=== PATIENT | male | born 1945 | race Caucasian/White ===

== ENCOUNTER 2020-02-10 18:14 | Observation (INO) | payer MEDICARE ==
--- NOTE | 2020-02-10 19:40 | PDOC.HHP ---
Hospitalist HPI - History of Present Illness History of Present Illness: ADMISSION DATE: 02/10/2020 TIME OF ASSESSMENT: 1845 PRIMARY CARE PHYSICIAN: Carine CHIEF COMPLAINT: Right-sided weakness HPI: Patient is a 74-year-old male past medical history significant for hypertension and CABG. Patient presented to the ER in [place] for right-sided weakness. He had gone to the store with his and before exiting the vehicle he noticed that his right hand was uncoordinated and numb. He also states that his right leg was weak and numb. He was able to flag down nearby friend who went and got his in the store. His symptoms began to resolve once EMS arrived. Patient was given aspirin 325 in the [place] ER prior to transfer. Patient denies chest pain, shortness of breath, change in mentation, contact with sick persons. He does indicate he has had any increased stressors lately including having all of their children have to move in with them again. He states he has had many nights of not sleeping and worrying about them. ED COURSE: Vital Signs: Blood pressure 197/97, pulse 58, respiratory rate 20, temp 97.9 oral, no pain, O2 saturation 96% on room air Patient was transferred to the [place] ER today after being seen in [place]. Prior to transfer he had lab work, EKG, Brain CT, and CT [place] angio with contrast completed. PAST MEDICAL HISTORY: Hyperlipidemia, hypertension PAST SURGICAL HISTORY: CABG x5 SOCIAL HISTORY: Patient lives at home with his and children. He is a daily tobacco chewer, denies smoking. Denies alcohol and drug use. FAMILY HISTORY: Unknown ALLERGIES: No known drug allergies CURRENT MEDICATIONS: Lisinopril 10 mg daily Atorvastatin 40 mg daily Amiodarone 200 mg daily Fish oil 1000 mg daily Iron tablet 2 times a day Hospitalist ROS - Review of Systems Neurological: reports: weakness (R side arm and leg), incoordination (R side arm and leg) All other systems reviewed; all pertinent +/- noted in HPI/Subj - Exam General Appearance: NAD, awake alert Eye: PERRL ENT: normocephalic atraumatic Heart: RRR, no gallops, normal peripheral pulses, murmur present Respiratory: CTAB, no wheezes, no rales, no ronchi, normal chest expansion Gastrointestinal: soft, non-tender, non-distended, normal bowel sounds Extremities: 1+ LE edema Skin: no rashes Neurological: cranial nerve grossly intact, normal sensation to touch, no focal deficits Musculoskeletal: normal tone, normal strength Psychiatric: normal affect, normal behavior, A&O x 3 Hospitalist Results - Labs Lab results: Laboratory Tests 02/10/20 02/10/20 02/10/20 15:30 15:30 15:30 WBC 7.0 Hgb 15.0 Hct 46.0 Sodium 142 Potassium 4.0 Chloride 104 Carbon Dioxide 27 Anion Gap 15 BUN 19 Creatinine 1.22 Estimated GFR (MDRD) 58 Glucose 98 Troponin I 0.022 - EKG Interpretation EKG: Sinus rhythm 61 bpm - Radiology Interpretation CT scan - head Status: report reviewed by me Additional Comment: Brain CT without contrast Impression: Chronic type findings, no acute intracranial abnormalities are demonstrated. CT [place] angio with contrast Impression: No acute intracranial abnormalities are demonstrated. Atherosclerosis. Mild stenosis of the proximal right cervical ICA. Prominent degenerative changes cervical spine with significant central canal and foraminal stenosis most pronounced at the C5-6 level. Hospitalist H&P A/P - Plan Plan: Possible TIA Neurology consultation pending Echo MRI in a.m. Received first dose of aspirin in ERpossible history of GI bleed Follow labs in a.m. Every shift to [facility] and every 4 hours neurochecks Hyperlipidemia FLP in a.m. Restart statin once reconciled Hypertension Allow for permissive hypertension tonight Restart home medications once reconciled Tobacco abuse Offered nicotine patch but patient denied Tobacco cessation education completed VTE prophylaxis in place with SCDs, possible history of GI bleedholding Lovenox at this time CODE STATUS: Full Surrogate decision-maker is his
[2020-02-10] MEDS ORDERED: Acetaminophen 325 MG TAB PO PRN (19:47)
[2020-02-10] MEDS ORDERED: hydrALAZINE 20 MG/ML VIAL SLOW IVP PRN (19:47)
[2020-02-10] MEDS ORDERED: Labetalol HCl 100 MG/20 ML VIAL SLOW IVP PRN (19:47)
[2020-02-10] MEDS: Melatonin 3 MG TAB PO PRN (22:11)
[2020-02-10] MEDS: Atorvastatin Calcium 40 MG TAB PO SCH (22:11)
[2020-02-10 22:36] VITALS: BMI 25.4
[2020-02-11 05:18] LABS: Hemoglobin 13.9 g/dL (14.0-18.0); Mean Corpuscular Volume 95.5 fL (78.0-98.0); Red Blood Cell (RBC) Count 4.41 mill/uL (4.70-6.10); White Blood Cell (WBC) Count 5.9 thou/uL (4.8-10.8)
[2020-02-11 05:19] LABS: #Eosinphils 0.2 thou/uL (0.0-0.7); #Lymphocytes 1.6 thou/uL (1.20-3.40); #Monocytes 0.7 thou/uL (0.11-0.59); #Neutrophils 3.5 thou/uL (1.40-6.50); %Basophils 0.8 % (0.0-1.0); %Eosinophils 2.6 % (0.0-10.0); %Lymphocytes 26.4 % (21.0-51.0); %Monocytes 12.1 % (0.0-10.0); %Neutrophils 58.1 % (42.0-75.0); Mean Corpuscular HGB CONC 33.1 g/dL (32.0-36.0); Mean Corpuscular Hemoglobin 31.6 pg (27.0-31.0); Mean Platelet Volume 7.9 fL (7.4-10.4); Platelet Count 164 thou/uL (130-400); RBC Distribution Width 12.5 % (11.5-14.5)
[2020-02-11 05:46] LABS: Anion Gap 13 mmol/L (10-20); BUN (Urea Nitrogen) 19 mg/dL (8.4-25.7); Calc. Creatinine Clearance 64 mL/min (70-130); Calcium 8.9 mg/dL (7.8-10.44); Carbon Dioxide 26 mmol/L (23-31); Cardiac Risk 3.6 (Less than 4.5); Chloride 106 mmol/L (98-107); Cholesterol 122 mg/dl (< 200 Desired); Glucose 101 mg/dL (83-110); HDL Cholesterol 34 mg/dL (>60 Neg Risk); LDL Cholesterol, Calculated 65 mg/dL; Potassium 4.1 mmol/L (3.5-5.1); Sodium 141 mmol/L (136-145); Triglycerides 114 mg/dL (Less than 150)
[2020-02-11] MEDS: Lisinopril 10 MG TAB PO SCH (08:13)
[2020-02-11] MEDS: Aspirin Chewable 81 MG TAB PO SCH (08:13)
[2020-02-11] MEDS: Amiodarone 200 MG TAB PO SCH (08:13)
[2020-02-11] MEDS: Fish Oil 1,000 MG CAP PO SCH (08:13)
[2020-02-11] MEDS ORDERED: IRON CARBONYL PO SCH (09:00)
[2020-02-11] MEDS ORDERED: ASCORBIC ACID PO SCH (09:00)
[2020-02-11] MEDS ORDERED: [UNRECOGNIZED DRUG - OTHER] PO SCH (09:00)
[2020-02-11] MEDS ORDERED: IRON VITAMIN C PO SCH (09:00)
--- NOTE | 2020-02-11 13:07 | PDOC.HOSPP ---
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 - Objective Vital Signs & Weight: Vital Signs (12 hours) Temp Pulse Resp BP Pulse Ox 02/11/20 12:57 98.0 F 57 L 14 197/90 H 97 02/11/20 08:06 97.7 F 56 L 14 193/72 H 94 L 02/11/20 04:00 97.8 F 52 L 18 157/79 H 96 Weight Weight 177 lb 9.6 oz I&O: 02/10/20 02/11/20 02/12/20 06:59 06:59 06:59 Intake Total 360 240 Balance 360 240 Result Diagrams: 02/11/20 05:06 02/11/20 05:06 Hospitalist ROS - Medication Medications: Active Medications Generic Name Dose Route Start Last Admin Trade Name Jori PRN Reason Stop Dose Admin Amiodarone HCl 200 mg 02/11/20 09:00 02/11/20 08:13 Amiodarone 200 Mg Tab PO 200 mg DAILY NAY Administration Aspirin 81 mg 02/11/20 09:00 02/11/20 08:13 Aspirin Chewable 81 Mg Tab PO 81 mg DAILY NAY Administration Atorvastatin Calcium 40 mg 02/10/20 21:00 02/10/20 22:11 Atorvastatin Calcium 40 Mg Tab PO 40 mg HS NAY Administration Fish Oil 1,000 mg 02/11/20 09:00 02/11/20 08:13 Fish Oil 1,000 Mg Cap PO 1,000 mg DAILY NAY Administration Lisinopril 10 mg 02/11/20 09:00 02/11/20 08:13 Lisinopril 10 Mg Tab PO 10 mg DAILY NAY Administration Melatonin 3 mg 02/10/20 20:38 02/10/20 22:11 Melatonin 3 Mg Tab PO 3 mg HSPRN PRN Administration Insomnia - Exam General Appearance: awake alert Eye: PERRL, anicteric sclera ENT: no oropharyngeal lesions, moist mucosa Neck: supple, no JVD Heart: RRR, no murmur Respiratory: no wheezes, no rales Gastrointestinal: soft, non-tender, non-distended, normal bowel sounds Extremities: no cyanosis, no edema Neurological: cranial nerve grossly intact, no focal deficits Hosp A/P (1) TIA (transient ischemic attack) Code(s): G45.9 - TRANSIENT CEREBRAL ISCHEMIC ATTACK, UNSPECIFIED Status: Reso lved (2) Afib Code(s): I48.91 - UNSPECIFIED ATRIAL FIBRILLATION Status: Chronic Qualifiers: Atrial fibrillation type: paroxysmal Qualified Code(s): I48.0 - Paroxysmal atrial fibrillation (3) HTN (hypertension) Code(s): I10 - ESSENTIAL (PRIMARY) HYPERTENSION Status: Chronic Qualifiers: Hypertension type: essential hypertension Qualified Code(s): I10 - Essential (primary) hypertension (4) CAD (coronary artery disease) Code(s): I25.10 - ATHSCL HEART DISEASE OF [place] CORONARY ARTERY W/O ANG PCTRS Status: Chronic Qualifiers: Coronary Disease-Associated Artery/Lesion type: bypass graft [place] vs. transplanted heart: [place] heart Associated angina: without angina Qualified Code(s): I25.810 - Atherosclerosis of coronary artery bypass graft(s) without angina pectoris (5) Dyslipidemia Code(s): E78.5 - HYPERLIPIDEMIA, UNSPECIFIED Status: Chronic - Plan await MRI and echo, mri will be done in am due to holiday will add eliquis in view of h/o afib, he has been in sinus rhythm here so far continue asp, lipitor, lisinopril neuro consult ct brain and cta brain shows no ac infarct/sig stenosis, aneurysm
--- NOTE | 2020-02-11 14:00 | CON ---
NEUROLOGY CONSULTATION DATE OF CONSULTATION: 02/11/2020 REASON FOR CONSULTATION: Episode of right-sided weakness. HISTORY OF PRESENT ILLNESS: Mr. Elieser Nunes is a 74-year-old male with medical history significant for hypertension and status post CABG, who presented to the [place] [facility] with right-sided weakness. The history is obtained from the patient. Per patient, he has gone to the store with his and when he was getting out of the car, he noticed his right hand was numb and he felt weak on the right leg also associated with paresthesias. The patient also noticed some involuntary shaking of the right hand, which he was unable to control. The EMS was called and when the EMS arrived, his symptoms began to improve and completely resolved by the time he was in the emergency room. He was given aspirin in the [place] before transfer to the [facility] for completion of stroke workup. The patient denies any nausea, vomiting, headache, chest pain, abdominal pain, recent illness, or recent sick contacts or recent exposure to COVID-19, dizziness, vertigo, double vision, blurred vision, loss of consciousness, or episodes like this before. In the emergency room, he was found to be hypertensive with blood pressure 197/97, pulse 58, respiratory rate was 20. Head CT was done, which did not reveal any acute intracranial pathology. CTA of the head and neck did not reveal hemodynamically significant stenosis. REVIEW OF SYSTEMS: All systems reviewed and were negative except the pertinent positives and negatives mentioned in the HPI. PAST MEDICAL HISTORY: Hypertension and hyperlipidemia. PAST SURGICAL HISTORY: CABG x5. SOCIAL HISTORY: , lives with his and children. He is a daily tobacco chewer. Denies smoking, illegal drug use, or alcohol abuse. FAMILY HISTORY: No significant family history of stroke. ALLERGIES: NO KNOWN DRUG ALLERGIES. CURRENT MEDICATIONS: 1. Lisinopril 10 mg daily. 2. Atorvastatin 40 mg daily. 3. Amiodarone 200 mg daily. 4. Fish oil 1000 mg daily. 5. Iron table 2 times daily. Vital Signs & Weight: Vital Signs (12 hours) Temp Pulse Resp BP Pulse Ox 02/11/20 12:57 98.0 F 57 L 14 197/90 H 97 02/11/20 08:06 97.7 F 56 L 14 193/72 H 94 L 02/11/20 04:00 97.8 F 52 L 18 157/79 H 96 Weight Weight 177 lb 9.6 oz I&O: 02/10/20 02/11/20 02/12/20 06:59 06:59 06:59 Intake Total 360 240 Balance 360 240 Active Medications Generic Name Dose Route Start Last Admin Trade Name Freq PRN Reason Stop Dose Admin Amiodarone HCl 200 mg 02/11/20 09:00 02/11/20 08:13 Amiodarone 200 Mg Tab PO 200 mg DAILY NAY Administration Aspirin 81 mg 02/11/20 09:00 02/11/20 08:13 Aspirin Chewable 81 Mg Tab PO 81 mg DAILY NAY Administration Atorvastatin Calcium 40 mg 02/10/20 21:00 02/10/20 22:11 Atorvastatin Calcium 40 Mg Tab PO 40 mg HS NAY Administration Fish Oil 1,000 mg 02/11/20 09:00 02/11/20 08:13 Fish Oil 1,000 Mg Cap PO 1,000 mg DAILY NAY Administration Lisinopril 10 mg 02/11/20 09:00 02/11/20 08:13 Lisinopril 10 Mg Tab PO 10 mg DAILY NAY Administration Melatonin 3 mg 02/10/20 20:38 02/10/20 22:11 Melatonin 3 Mg Tab PO 3 mg HSPRN PRN Administration Insomnia PHYSICAL EXAMINATION: General Appearance: awake alert Eye: PERRL, anicteric sclera ENT: no oropharyngeal lesions, moist mucosa Neck: supple, no JVD Heart: RRR, no murmur Respiratory: no wheezes, no rales Gastrointestinal: soft, non-tender, non-distended, normal bowel sounds Extremities: no cyanosis, no edema Neurological: Mental status, the patient is alert and oriented to person, place, and time. Recent and remote memory intact. Fund of knowledge is appropriate. Speech is clear. Cranial nerves II through XII intact. Motor, muscle tone and bulk are normal. Strength 5/5 bilaterally. Sensory intact. Cerebellar, finger-nose testing intact. Gait deferred due to patient's safety reason. DATA REVIEWED: I reviewed the labs which were essentially unremarkable. Lab results: Laboratory Tests 02/10/20 02/10/20 02/10/20 15:30 15:30 15:30 WBC 7.0 Hgb 15.0 Hct 46.0 Sodium 142 Potassium 4.0 Chloride 104 Carbon Dioxide 27 Anion Gap 15 BUN 19 Creatinine 1.22 Estimated GFR (MDRD) 58 Glucose 98 Troponin I 0.022 EKG: Sinus rhythm [address] scan - head Status: report reviewed by me Additional Comment: Brain CT without contrast Impression: Chronic type findings, no acute intracranial abnormalities are demonstrated. CT [place] angio with contrast Impression: No acute intracranial abnormalities are demonstrated. Atherosclerosis. Mild stenosis of the proximal right cervical ICA. Prominent degenerative changes cervical spine with significant central canal and foraminal stenosis most pronounced at the C5-6 level. ASSESSMENT AND PLAN: (1) TIA (transient ischemic attack) Code(s): G45.9 - TRANSIENT CEREBRAL ISCHEMIC ATTACK, UNSPECIFIED Status: Resolved (2) Afib Code(s): I48.91 - UNSPECIFIED ATRIAL FIBRILLATION Status: Chronic Qualifiers: Atrial fibrillation type: paroxysmal Qualified Code(s): I48.0 - Paroxysmal atrial fibrillation (3) HTN (hypertension) Code(s): I10 - ESSENTIAL (PRIMARY) HYPERTENSION Status: Chronic Qualifiers: Hypertension type: essential hypertension Qualified Code(s): I10 - Essential (primary) hypertension (4) CAD (coronary artery disease) Code(s): I25.10 - ATHSCL HEART DISEASE OF [place] CORONARY ARTERY W/O ANG PCTRS Status: Chronic Qualifiers: Coronary Disease-Associated Artery/Lesion type: bypass graft [place] vs. transplanted heart: [place] heart Associated angina: without angina Qualified Code(s): I25.810 - Atherosclerosis of coronary artery bypass graft(s) without angina pectoris (5) Dyslipidemia Code(s): E78.5 - HYPERLIPIDEMIA, UNSPECIFIED Status: Chronic Mr. Des Mon is a 74-year-old male who was consulted for an episode of right-sided weakness, which resolved. The differential diagnosis includes TIA versus seizure because of associated involuntary movements. MRI of the brain to rule out acute intracranial process. CTA of the head and neck did not reveal hemodynamically significant stenosis. 2D echo to evaluate for left ventricular ejection fraction on telemetry to rule out arrhythmias. Continue aspirin and high-intensity statin for secondary stroke prevention. Neuro checks every 4 hours. Permissive control of blood pressure at this time. Strict control of blood glucose. Check hemoglobin A1c, fasting lipid panel and TSH. EEG to rule out cortical irritability. Continue home medications. Continue medical management per primary team. Plan discussed in detail with the patient and the nursing staff. The PT/OT/Speech, DVT prophylaxis. We will continue to follow. Thank you for the consult. Job ID: [id number] MTDD
[2020-02-11] MEDS: Apixaban 5 MG TAB PO SCH (21:07)
[2020-02-11] MEDS: Atorvastatin Calcium 40 MG TAB PO SCH (21:07)
--- NOTE | 2020-02-11 21:27 | PDOC.EEG ---
Neurology EEG Report - Report Report: This EEG was performed using 24 channel Agilys video EEG machine with 24 disc electrodes. This was an extended 2 hours 6 minutes of inpatient video EEG recording. Digital analysis of the EEG was done for spike and seizure detection which revealed no abnormalities. Background: The posterior background rhythm is 9-10 Hz. The background rhythm attenuates with eye opening and enhances with eye closure. Hyperventilation: No significant response. Photic Stimulation: Bioccipital symmetric driving response is observed. Sleep: Drowsiness is observed. EEG Diagnosis: Normal awake and drowsy EEG.
[2020-02-11] MEDS ORDERED: Melatonin 3 MG TAB PO PRN (22:21)
[2020-02-11] MEDS: Melatonin 3 MG TAB PO PRN (23:57)
[2020-02-12 05:04] LABS: #Eosinphils 0.1 thou/uL (0.0-0.7); #Lymphocytes 1.6 thou/uL (1.20-3.40); #Monocytes 0.9 thou/uL (0.11-0.59); #Neutrophils 7.4 thou/uL (1.40-6.50); %Basophils 0.2 % (0.0-1.0); %Eosinophils 1.2 % (0.0-10.0); %Lymphocytes 16.1 % (21.0-51.0); %Monocytes 8.9 % (0.0-10.0); %Neutrophils 73.5 % (42.0-75.0); Hemoglobin 14.7 g/dL (14.0-18.0); Mean Corpuscular Hemoglobin 30.5 pg (27.0-31.0); Mean Corpuscular Volume 95.2 fL (78.0-98.0); Mean Platelet Volume 8.7 fL (7.4-10.4); Platelet Count 187 thou/uL (130-400); RBC Distribution Width 12.5 % (11.5-14.5); Red Blood Cell (RBC) Count 4.81 mill/uL (4.70-6.10); White Blood Cell (WBC) Count 10.1 thou/uL (4.8-10.8)
[2020-02-12 05:37] LABS: Anion Gap 16 mmol/L (10-20); BUN (Urea Nitrogen) 21 mg/dL (8.4-25.7); Calc. Creatinine Clearance 61 mL/min (70-130); Carbon Dioxide 23 mmol/L (23-31); Chloride 105 mmol/L (98-107); Glucose 109 mg/dL (83-110); Potassium 4.2 mmol/L (3.5-5.1); Sodium 140 mmol/L (136-145)
[2020-02-12] MEDS: Fish Oil 1,000 MG CAP PO SCH (08:44)
[2020-02-12] MEDS: Amiodarone 200 MG TAB PO SCH (08:44)
[2020-02-12] MEDS: Lisinopril 10 MG TAB PO SCH (08:44)
[2020-02-12] MEDS: Apixaban 5 MG TAB PO SCH (08:45)
[2020-02-12] MEDS: Aspirin Chewable 81 MG TAB PO SCH (08:45)
--- NOTE | 2020-02-12 11:34 | MRI ---
MRI brain noncontrast HISTORY: Right hand paresthesias. TIA. FINDINGS: A 1.0 cm oval focus of restricted diffusion involves a lower left temporoparietal gyrus. Ju st superior to this, several parietal gyri, including the post central gyrus, show serpiginous foci of restricted diffusion with abnormal FLAIR signal and very subtle T2 signal. There is no significant mass effect. Mild diffuse cortical atrophy. Septum pellucidum is midline. IMPRESSION : Small area of somewhat discontinuous acute infarct involving the left temporoparietal lobe, including the postcentral gyrus, explaining the right arm paresthesias.
--- NOTE | 2020-02-12 14:39 | PDOC.NEUPN ---
- Subjective Encounter Date: 02/12/20 Subjective: Mr. Mon feels better and denies any new complaints in the last 24 hours. MRI of the brain is positive for acute lacunar infarction. - Objective Vital Signs & Weight: Vital Signs (12 hours) Temp Pulse Resp BP BP Pulse Ox 02/12/20 11:38 97.9 F 63 18 174/94 H 97 02/12/20 07:06 97.5 F L 63 19 162/79 H 95 02/12/20 03:53 98.1 F 59 L 14 192/88 H 96 Weight Weight 177 lb 9.6 oz I&O: 02/11/20 02/12/20 02/13/20 06:59 06:59 06:59 Intake Total 360 755 240 Balance 360 755 240 Result Diagrams: 02/12/20 04:52 02/12/20 04:52 Radiology Reviewed by me: Yes EKG Reviewed by me: Yes ROS - Review of Systems Constitutional: denies: fever, chills, sweats, weakness, malaise, other Eyes: denies: pain, vision change, conjunctivae inflammation, eyelid inflammation, redness, other ENT: denies: ear pain, ear discharge, nose pain, nose discharge, nose congestion, mouth pain, mouth swelling, throat pain, throat swelling, other Respiratory: denies: cough, dry, shortness of breath, hemoptysis, SOB with excertion, pleuritic pain, sputum, wheezing, other Cardiovascular: reports: AFIB Gastrointestinal: denies: nausea, vomiting, abdominal pain, diarrhea, constipation, melena, hematochezia, other Genitourinary: denies: dysuria, frequency, incontinence, hematuria, retention, other Musculoskeletal: denies: neck pain, shoulder pain, arm pain, back pain, hand pain, leg pain, foot pain, other Skin: denies: rash, lesions, berhane, bruising, other Neurological: denies: weakness, numbness, incoordination, change in speech, confusion, seizures, other - Medication Medications: Active Medications Generic Name Dose Route Start Last Admin Trade Name Freq PRN Reason Stop Dose Admin Amiodarone HCl 200 mg 02/11/20 09:00 02/12/20 08:44 Amiodarone 200 Mg Tab PO 200 mg DAILY NAY Administration Apixaban 5 mg 02/11/20 21:00 02/12/20 08:45 Apixaban 5 Mg Tab PO 5 mg BID NAY Administration Aspirin 81 mg 02/11/20 09:00 02/12/20 08:45 Aspirin Chewable 81 Mg Tab PO 81 mg DAILY NAY Administration Atorvastatin Calcium 40 mg 02/10/20 21:00 02/11/20 21:07 Atorvastatin Calcium 40 Mg Tab PO 40 mg HS NAY Administration Fish Oil 1,000 mg 02/11/20 09:00 02/12/20 08:44 Fish Oil 1,000 Mg Cap PO 1,000 mg DAILY NAY Administration Lisinopril 10 mg 02/11/20 09:00 02/12/20 08:44 Lisinopril 10 Mg Tab PO 10 mg DAILY NAY Administration Melatonin 3 mg 02/10/20 20:38 02/11/20 23:57 Melatonin 3 Mg Tab PO 3 mg HSPRN PRN Administration Insomnia - Exam General Appearance: awake alert Eye: PERRL ENT: normocephalic atraumatic Neck: supple Respiratory: CTAB Cardiovascular: RRR Gastrointestinal: soft Extremities: no cyanosis Skin: normal turgor Neurological: CN's grossly intact, no new deficit Musculoskeletal: normal tone, normal strength, no muscle wasting PSYCH: normal affect, normal behavior, A&O x 3 Results - Labs Result Diagrams: 02/12/20 04:52 02/12/20 04:52 Lab results: WBC 10.1 thou/uL (4.8-10.8) 02/12/20 04:52 Hgb 14.7 g/dL (14.0-18.0) 02/12/20 04:52 Hct 45.8 % (42.0-52.0) 02/12/20 04:52 MCV 95.2 fL (78.0-98.0) 02/12/20 04:52 Plt Count 187 thou/uL (130-400) 02/12/20 04:52 Neutrophils % 73.5 % (42.0-75.0) 02/12/20 04:52 Sodium 140 mmol/L (136-145) 02/12/20 04:52 Potassium 4.2 mmol/L (3.5-5.1) 02/12/20 04:52 Chloride 105 mmol/L (98-107) 02/12/20 04:52 Carbon Dioxide 23 mmol/L (23-31) 02/12/20 04:52 BUN 21 mg/dL (8.4-25.7) 02/12/20 04:52 Creatinine 1.18 mg/dL (0.7-1.3) 02/12/20 04:52 Glucose 109 mg/dL (83-110) 02/12/20 04:52 Calcium 9.0 mg/dL (7.8-10.44) 02/12/20 04:52 - EKG Interpretation EKG: Atrial fibrillation - Radiology Interpretation MRI - head Additional Comment: RI of the brain was consistent with acute lacunar infarction. PN A/P (1) CVA (cerebral vascular accident) Code(s): I63.9 - CEREBRAL INFARCTION, UNSPECIFIED Status: Acute (2) Afib Code(s): I48.91 - UNSPECIFIED ATRIAL FIBRILLATION Status: Chronic Qualifiers: Atrial fibrillation type: paroxysmal Qualified Code(s): I48.0 - Paroxysmal atrial fibrillation (3) CAD (coronary artery disease) Code(s): I25.10 - ATHSCL HEART DISEASE OF [place] CORONARY ARTERY W/O ANG PCTRS Status: Chronic Qualifiers: Coronary Disease-Associated Artery/Lesion type: bypass graft [place] vs. transplanted heart: [place] heart Associated angina: without angina Qualified Code(s): I25.810 - Atherosclerosis of coronary artery bypass graft(s) without angina pectoris (4) Dyslipidemia Code(s): E78.5 - HYPERLIPIDEMIA, UNSPECIFIED Status: Chronic - Plan Daily Plan: plan discussed w/ family ( at bedside), PT/OT, out of bed/ambulate Mr. Mon is a 74-year-old male with medical history significant for hypertension, atrial fibrillation presented with right-sided paresthesias which are now much improved. MRI of the brain was consistent with acute lacunar infarction in the left sensory cortex. MRI of the brain reviewed which was consistent with tiny acute infarction in t he left temporoparietal region. Telemetryatrial fibrillationpatient is started on Eliquis 5 mg twice daily 2D echo showed left ventricular ejection fraction 45 to 50%. No thrombus or PFO. CTA of the head and neck reviewed which was negative for hemodynamically significant stenosis. Monitor control of blood pressure and blood glucose Neurochecks every 4 hours. Continue aspirin and high intensity statin for secondary stroke prevention. Continue home medications. Continue medical management per primary team PT/OT/speech DVT prophylaxis Plan discussed in detail with the patient, at bedside and also communicated with the nursing staff and the primary attending Dr. Conrad
--- NOTE | 2020-02-12 15:28 | PDOC.DS.DS ---
Provider - Provider Date of Admission: 02/10/20 18:45 Date of Discharge: 02/12/20 Admitting Provider: Amadou Moreno MD Consultations: Neurology Primary Care Physician: Rashawn Hawk DO Course - Hospital Course Hospital Course: Patient is a very pleasant 74-year-old male who initially presented to the hospital with right-sided weakness. His symptoms resolved.Patient CTA indicated mild stenosis to the proximal right cervical ICA. Patient's echocardiogram indicated EF of 45 to 50%. Patient's MRI indicated small area of acute infarct involving the left temporoparietal lobe. Patient has a history of A. fib currently rate controlled in sinus rhythm on amnio. We will start patient on Eliquis. I did discuss this with neurology who also recommended starting patient on Eliquis. Patient was seen by physical therapy no needs were required. Patient will be discharged home follow-up with primary care doctor. Risks of bleeding discussed with patient. Resuscitation Status: 02/10/20 19:47 Resuscitation Status Routine Co-Sign Provider: Resuscitation Status: FULL: Full Resuscitation Discussed with: pt - Labs Lab Results: 02/12/20 04:52 02/12/20 04:52 Abnormal Lab Results - Last 48 hrs 02/11/20 05:06: RBC 4.41 L, Hgb 13.9 L, MCH 31.6 H, Monocytes % 12.1 H, Monoc ytes # 0.7 H 02/12/20 04:52: Lymphocytes % 16.1 L, Neutrophils # 7.4 H, Monocytes # 0.9 H - Physical Exam Vitals: Vital Signs (12 hours) Temp Pulse Pulse Pulse Resp BP BP 02/12/20 14:05 59 L 64 178/77 H 194/92 H 02/12/20 11:38 97.9 F 63 18 02/12/20 07:06 97.5 F L 63 19 02/12/20 03:53 98.1 F 59 L 14 BP BP Pulse Ox 02/12/20 14:05 02/12/20 11:38 174/94 H 97 02/12/20 07:06 162/79 H 95 02/12/20 03:53 192/88 H 96 Weight Weight 177 lb 9.6 oz Physical Exam: The patient was seen and examined on the day of discharge. Problem - Discharge Plan Assessment: Right-sided paresthesias CVA A. fib currently sinus rhythm rate controlled. Plan - Discharge Medications Prescriptions: Aspirin Chewable [Aspirin Chewable Tablet] 81 mg PO DAILY #30 tab Apixaban [Eliquis] 5 mg PO BID #60 tab Home Medications: Medication Instructions Recorded Confirmed Type Amiodarone [Cordarone] 200 mg PO DAILY 02/10/20 02/10/20 History Atorvastatin Calcium [Lipitor] 40 mg PO DAILY 02/10/20 02/10/20 History Iron,Carbonyl/Ascorbic Acid [Iron 1 tab PO BID 02/10/20 02/10/20 History 100-Vitamin C] Lisinopril 10 mg PO DAILY 02/10/20 02/10/20 History Apixaban [Eliquis] 5 mg PO BID #60 tab 02/12/20 Rx Aspirin Chewable [Aspirin Chewable 81 mg PO DAILY #30 tab 02/12/20 Rx Tablet] Allergies: No Known Drug Allergies Allergy (Verified 02/10/20 21:24) - Discharge Instructions Discharge Instructions:: follow up with your primary care in one week please. Activity:: Activity as Tolerated Nourishment:: Heart Healthy Diet - Follow up Plan Referrals: Rashawn Hawk DO [Primary Care Provider] - Disposition: HOME Quality - Care Measures CORE MEASURES:: Stroke/TIA - Stroke/TIA Did you prescribe antithrombotic therapy?: Yes Did you prescribe anticoagulant for A Fib/Flutter?: Yes Did you prescribe a statin medication?: Yes
[2020-02-12 15:32] VITALS: TEMP 98.2
[2020-02-13 10:19] VITALS: BP 178/77
== END 2020-02-12 16:56 | disposition home or self-care (01) ==
LOC: ERS 18:14 → 2SE 18:45
PROVIDERS: ADMIT Internal Medicine; ATTEND Internal Medicine
DX: I63.81 Other cerebral infarction due to occlusion or stenosis of small artery (principal); G81.91 Hemiplegia, unspecified affecting right dominant side; I48.0 Paroxysmal atrial fibrillation; I65.21 Occlusion and stenosis of right carotid artery; E78.5 Hyperlipidemia, unspecified; I10 Essential (primary) hypertension; F17.220 Nicotine dependence, chewing tobacco, uncomplicated; E78.00 Pure hypercholesterolemia, unspecified; I25.10 Atherosclerotic heart disease of native coronary artery without angina pectoris; Z79.899 Other long term (current) drug therapy; Z95.1 Presence of aortocoronary bypass graft
CPT/HCPCS: 36415; 70551; 80048; 80061; 85025; 93306; 95712; 95819; 95957; G0378